=== PATIENT | female | born 1945 | race Caucasian/White ===

== ENCOUNTER 2016-12-12 20:39 | Emergency (ER) | payer OTHER, BC ==
[~2016-12-12] VITALS: Ht 149.9 cm; Wt 43.4 kg
[~2016-12-12 20:39] MED LIST: ALBUTEROL SULF8.5 GM IH; ATENOLOL50 MG PO; ATORVASTATIN CA10 MG PO; AZITHROMYCIN250 MG1 PO; Advair HFA 115/21 IH; CALCIUM 500 MG1 EACH PO; CEFTIN500 MG PO; DUONEB 2.5-0.5 M3 ML IH; HYDROCHLOROTH12.5 M3 PO; PREDNISONE20 MG PO; PROVENTIL,2.5 MG/0.5 IH; SPIRIVA1 INHALATI IH; SYMBICORT60 INHALA1 IH; ZITHROMAX250 MG; ZYRTEC10 M3 PO
[2016-12-12 21:24] LABS: HEMATOCRIT 37.7 % (36.0-46.0); MCHC 33.2 G/DL (30.0-36.0); MCV 90.4 FL (83-99); MEAN PLAT.VOLUME 9.8 uM^3 (9.5-12.4); PLATELET COUNT 210 K/uL (156-360); RBC DIS.WIDTH-CV 12.7 % (11.8-14.6); RBC DIS.WIDTH-SD 41.2 % (39-53); RED BLOOD COUNT 4.17 M/uL (3.80-5.20); WHITE BLOOD COUNT 4.1 K/uL (4.1-10.2)
[2016-12-12 21:34] LABS: CHLORIDE 106 mEq/L (99-109); POTASSIUM 3.9 mEq/L (3.7-5.4); SODIUM 144 mEq/L (136-147)
[2016-12-12 21:36] LABS: GLUCOSE 133 mg/dL (70-99)
[2016-12-12 21:37] LABS: ANION GAP 11 MEQ/L (2-14)
[2016-12-12 21:40] LABS: GFR ESTIMATE (CALCULATED) > 59 mL/min/
[2016-12-12 21:41] LABS: UREA NITROGEN (BUN) 11 mg/dL (9-23)
[2016-12-12 22:00] LABS: TROP-I INTERPRETATION NEGATIVE; TROPONIN-I < 0.01 ng/mL (0.0-0.30)
[2016-12-12] MEDS ORDERED: PREDNISONE20 MG PO (23:49)
[2016-12-13 00:20] VITALS: BP 151/81
== END 2016-12-13 00:21 | disposition home or self-care (01) ==
LOC: EME → EDBD 20:39 → EME 12-13 00:21
DX: J44.1 Chronic obstructive pulmonary disease with (acute) exacerbation (principal); Z87.891 Personal history of nicotine dependence; E78.5 Hyperlipidemia, unspecified; I10 Essential (primary) hypertension; Z87.01 Personal history of pneumonia (recurrent)
CPT/HCPCS: 71020; 80048; 83880; 84484; 85027; 93005; 94640; 94640 76; 99281; 99284; J1100

== ENCOUNTER 2017-07-02 13:11 | Emergency (ER) | payer OTHER, BC ==
[~2017-07-02] VITALS: Ht 149.9 cm; Wt 43.3 kg
[2017-07-02 13:27] VITALS: BP 155/73
[2017-07-02] MEDS ORDERED: ZITHROMAX Z-PA250 MG PO (14:29)
[2017-07-02] MEDS ORDERED: TESSALON PERLE100 MG PO (14:29)
[2017-07-02] MEDS ORDERED: PREDNISONE10 M1 PO (14:29)
== END 2017-07-02 14:58 | disposition home or self-care (01) ==
LOC: RME 13:11 → EME 13:11 → RME 14:58
DX: J44.1 Chronic obstructive pulmonary disease with (acute) exacerbation (principal); J06.9 Acute upper respiratory infection, unspecified; I10 Essential (primary) hypertension; E78.5 Hyperlipidemia, unspecified; Z87.891 Personal history of nicotine dependence
CPT/HCPCS: 71020; 99281; 99283

== ENCOUNTER 2017-07-06 22:14 | Emergency (ER) | payer OTHER, BC ==
[~2017-07-06] VITALS: Ht 149.9 cm; Wt 42.2 kg
[~2017-07-06 22:14] MED LIST changes: +PREDNISONE10 M1 PO; +TESSALON PERLE100 MG PO; +ZITHROMAX Z-PA250 MG PO
[2017-07-07 02:59] LABS: CARBON DIOXIDE (BICARBONATE) 34.2 MEQ/L (20-31); HEMATOCRIT 40.6 % (36.0-46.0); MCHC 32.8 G/DL (30.0-36.0); MCV 91.4 FL (83-99); MEAN PLAT.VOLUME 9.7 uM^3 (9.5-12.4); PLATELET COUNT 218 K/uL (156-360); RBC DIS.WIDTH-CV 12.2 % (11.8-14.6); RED BLOOD COUNT 4.44 M/uL (3.80-5.20); WHITE BLOOD COUNT 5.5 K/uL (4.1-10.2)
[2017-07-07 03:11] LABS: CHLORIDE 102 mEq/L (99-109); POTASSIUM 3.9 mEq/L (3.7-5.4); SODIUM 141 mEq/L (136-147)
[2017-07-07 03:12] LABS: GLUCOSE 123 mg/dL (70-99)
[2017-07-07 03:14] LABS: ANION GAP 10 MEQ/L (2-14)
[2017-07-07 03:16] LABS: GFR ESTIMATE (CALCULATED) 58 mL/min/
[2017-07-07 03:17] LABS: UREA NITROGEN (BUN) 20 mg/dL (9-23)
[2017-07-07 03:19] LABS: TROP-I INTERPRETATION NEGATIVE; TROPONIN-I < 0.01 ng/mL (0.0-0.30)
[2017-07-07 03:43] VITALS: BP 158/92
== END 2017-07-07 03:44 | disposition home or self-care (01) ==
LOC: EME 22:14
PROVIDERS: Emergency Medicine
DX: J40 Bronchitis, not specified as acute or chronic (principal); J98.01 Acute bronchospasm; J44.9 Chronic obstructive pulmonary disease, unspecified; I10 Essential (primary) hypertension; E78.5 Hyperlipidemia, unspecified; Z87.891 Personal history of nicotine dependence
CPT/HCPCS: 71020; 80048; 82803; 84484; 85027; 93005; 99281; 99284

== ENCOUNTER 2017-11-09 16:49 | Observation (INO) | payer OTHER, BC ==
[~2017-11-09] VITALS: Ht 149.9 cm; Wt 42.0 kg
[2017-11-09 17:50] LABS: HEMATOCRIT 38.6 % (36.0-46.0); HEMOGLOBIN 12.9 G/DL (11.9-15.5); MCHC 33.4 G/DL (30.0-36.0); MCV 89.8 FL (83-99); PLATELET COUNT 177 K/uL (156-360); RBC DIS.WIDTH-SD 39.3 % (39-53); WHITE BLOOD COUNT 6.8 K/uL (4.1-10.2)
[2017-11-09 18:05] LABS: CHLORIDE 101 mEq/L (99-109); POTASSIUM 3.4 mEq/L (3.7-5.4); SODIUM 136 mEq/L (136-147)
[2017-11-09 18:07] LABS: GLUCOSE 142 mg/dL (70-99)
[2017-11-09 18:11] LABS: CREATININE 0.8 mg/dL (0.6-1.3); GFR ESTIMATE (CALCULATED) > 59 mL/min/
[2017-11-09 18:12] LABS: UREA NITROGEN (BUN) 10 mg/dL (9-23)
[2017-11-09] MEDS ORDERED: OSELTAMIVIR PHO75 MG PO (21:53)
[2017-11-09] MEDS ORDERED: CARVEDILOL3.125 MG PO (21:54)
[2017-11-09] MEDS ORDERED: K-DUR10 MEQ PO (21:54)
[2017-11-09] MEDS ORDERED: INCRUSE ELLI62.5 MCG IH (21:54)
[2017-11-09] MEDS ORDERED: FLUTICASONE PRO16 GM BOTH NARES (21:55)
[2017-11-09] MEDS ORDERED: ALPRAZOLAM0.25 M2 PO (21:56)
[2017-11-09] MEDS ORDERED: VENTOLIN HFA18 GM IH (21:57)
[2017-11-09 23:00] VITALS: BP 147/115
[2017-11-10 05:13] VITALS: BP 137/71
[2017-11-10 05:54] LABS: HEMATOCRIT 38.2 % (36.0-46.0); HEMOGLOBIN 12.7 G/DL (11.9-15.5); MCH 30.3 PG (29.0-34.0); MCHC 33.2 G/DL (30.0-36.0); MCV 91.2 FL (83-99); PLATELET COUNT 175 K/uL (156-360); RBC DIS.WIDTH-CV 12.1 % (11.8-14.6); RBC DIS.WIDTH-SD 40.1 % (39-53); RED BLOOD COUNT 4.19 M/uL (3.80-5.20); WHITE BLOOD COUNT 3.3 K/uL (4.1-10.2)
[2017-11-10 06:16] LABS: CHLORIDE 104 MEQ/L (99-109); CREATININE 0.7 MG/DL (0.6-1.3); GFR ESTIMATE (CALCULATED) > 59 mL/min/; GLUCOSE 212 mg/dL (70-99); UREA NITROGEN (BUN) 18 mg/dL (9-23)
[2017-11-10 06:19] LABS: POTASSIUM 4.3 MEQ/L (3.7-5.4); SODIUM 143 MEQ/L (136-147)
[2017-11-10 09:55] VITALS: BP 127/63
[2017-11-10 15:16] VITALS: BP 127/68
[2017-11-10 20:29] VITALS: BP 130/60
[2017-11-10 23:06] VITALS: BP 179/74
[2017-11-11 03:49] VITALS: BP 139/69
[2017-11-11 09:40] VITALS: BP 166/74
[2017-11-11 11:29] VITALS: BP 152/81
[2017-11-11 15:30] VITALS: BP 164/72
[2017-11-11 20:30] VITALS: BP 128/79
[2017-11-12 00:09] VITALS: BP 173/78
[2017-11-12 03:49] VITALS: BP 129/62
[2017-11-12 11:22] VITALS: BP 166/79
[2017-11-12] MEDS ORDERED: PREDNISONE20 MG PO ×2 (12:33→12:36)
[2017-11-12] MEDS ORDERED: ALBUTEROL1.25 MG/3 IH (12:36)
== END 2017-11-12 15:08 | disposition home or self-care (01) ==
LOC: EME 16:49 → EDOF 21:44 → 5WEST 21:44 → EDOF 21:44 → ENRESERV 21:53 → 5WEST 22:50
PROVIDERS: Hospitalist
DX: J44.1 Chronic obstructive pulmonary disease with (acute) exacerbation (principal); J11.1 Influenza due to unidentified influenza virus with other respiratory manifestations; R09.02 Hypoxemia; Z99.81 Dependence on supplemental oxygen; Z87.891 Personal history of nicotine dependence; I10 Essential (primary) hypertension; E78.00 Pure hypercholesterolemia, unspecified; E78.5 Hyperlipidemia, unspecified; E87.6 Hypokalemia; Z82.5 Family history of asthma and other chronic lower respiratory diseases; F41.9 Anxiety disorder, unspecified
CPT/HCPCS: 71020; 71045; 80048; 85027; 93005; 94640; 94640 76; 94799; 99202; 99281; 99285; G0378; J1100; J1650; J2930; J7512